=== PATIENT | female | born 1965 | race Caucasian/White ===

== ENCOUNTER → 2024-02-05 13:53 | Outpatient (REF) | payer BC, SELFPAY | LOC: HWRAD 13:53 | PROVIDERS: ATTENDING PHYSICIAN Internal Medicine Hematology & Oncology; FAMILY PHYSICIAN Nurse Practitioner; REFERRING PHYSICIAN Dermatology | DX: C50.419 Malignant neoplasm of upper-outer quadrant of unspecified female breast (principal); D03.4 Melanoma in situ of scalp and neck; C34.11 Malignant neoplasm of upper lobe, right bronchus or lung; C7A.090 Malignant carcinoid tumor of the bronchus and lung | CPT/HCPCS: 71260; 74177; Q9967 ==

== ENCOUNTER → 2025-01-29 07:34 | Outpatient (REF) | payer BC, SELFPAY | LOC: RAD 07:34 | PROVIDERS: ATTENDING PHYSICIAN Internal Medicine Hematology & Oncology; FAMILY PHYSICIAN Nurse Practitioner | DX: C50.419 Malignant neoplasm of upper-outer quadrant of unspecified female breast (principal); D03.4 Melanoma in situ of scalp and neck; C34.11 Malignant neoplasm of upper lobe, right bronchus or lung; C7A.090 Malignant carcinoid tumor of the bronchus and lung | CPT/HCPCS: 71260; 74177; Q9967 ==